=== PATIENT | male | born 1955 | race Caucasian/White ===

== ENCOUNTER 2016-08-30 13:50 | Emergency (ER) | payer OTHER ==
[2016-08-30 13:58] VITALS: RESP 16
--- NOTE | 2016-08-30 14:13 | EDPHY ---
H & P Stated Complaint: Slipped and fell; lac to forehead; No LOC Source: Patient Exam Limitations: No limitations - Personal History Current Tetanus Diphtheria and Acellular Pertussis (TDAP): Yes - Medical/Surgical History Other PMH: healthy - Social History Smoking Status: Never smoked Time Seen by Provider: 08/30/16 14:11 HPI/ROS: CHIEF COMPLAINT: Mechanical fall, head laceration. HISTORY OF PRESENT ILLNESS: The patient is a 60-year-old male who presents after a mechanical fall while hiking. He struck his forehead and is complaining of a laceration. He denies dizziness, chest pain, shortness of breath, or other preceding symptoms. He admits mild neck pain that has mostly resolved. He denies loss of consciousness. No weakness or numbness in his arms. No fever, chills, chest pain, shortness of breath, palpitations, vomiting, diarrhea, urinary complaints, headache, lightheadedness. REVIEW OF SYSTEMS: Aside from elements discussed in the HPI, a comprehensive 10-point review of systems was reviewed and is negative. PAST MEDICAL HISTORY: Denies. SOCIAL HISTORY: Here with . VITAL SIGNS: Reviewed by me GENERAL: Well-developed, well-nourished, resting comfortably in no respiratory distress. HEENT: 2.5cm vertical laceration across forehead. Abrasion on nasal bridge. Contusion in center of forehead. Eyes: PERRL, EOMI. No icterus, no injection. Mouth: moist mucous membranes. No erythema or lesions. Neck: Nontender to palpation. supple with no adenopathy. LUNGS: Clear to auscultation bilaterally, no wheezes, rhonchi or rales. CARDIAC: Regular rate and rhythm, no rubs, murmurs or gallops. ABDOMEN: Soft, nontender, nondistended, bowel sounds normal. BACK: No CVA tenderness. EXTREMITIES: No trauma. No edema. Range of motion is normal throughout. NEURO: Alert and oriented, Motor 5/5 in all major muscle groups. Sensation grossly intact. SKIN: Warm and dry, no rash. PSYCHIATRIC: Normal mentation, no agitation. Portions of this note were transcribed by a medical device. I personally performed a history, physical exam, medical decision making, and confirmed accuracy of information the transcribed note. (Lara Cervantes) Constitutional: Initial Vital Signs Temperature (C) 36.6 C 08/30/16 13:56 Heart Rate 73 08/30/16 13:56 Respiratory Rate 16 08/30/16 13:56 Blood Pressure 115/76 08/30/16 13:56 O2 Sat (%) 99 08/30/16 13:56 O2 Delivery Mode Room Air Allergies/Adverse Reactions: No Known Allergies Allergy (Verified 08/30/16 13:55) Home Medications: Medication Instructions Recorded NK [No Known Home Meds] 08/30/16 Medical Decision Making Procedures: Procedure: Laceration repair. Verbal consent was obtained from the patient. The 2.5 cm laceration on the forehead was anesthetized in the usual fashion. The wound was irrigated, draped and explored to its base with a gloved finger. There were no deep structures involved. No tendon injury was identified. The wound was repaired with 6 0 Prolene, 8 simple interrupted sutures. The wound repair was simple. The procedure was performed by myself. (Trevor Bennett) ED Course/Re-evaluation: 60 year old with a mechanical slip and fall. No LOC. Facial/ forehead trauma alone. Neurologically intact. Here with . Lac repaired. Home with [facility] instructions and laceration instructions. (Lara Cervantes) Differential Diagnosis: Differential diagnosis for the patient's injury was considered including but not limited to contusion, abrasion, laceration, intracranial hemorrhage, concussion, facial fracture, nasal fracture, cervical spine injury. (Lara Cervantes) - Data Points Medications Given: Discontinued Medications Ibuprofen (Motrin) 600 mg PO EDNOW ONE Stop: 08/30/16 14:23 Last Admin: 08/30/16 14:26 Dose: 600 mg Departure - Departure Disposition: Home, Routine, Self-Care Clinical Impression: Forehead laceration Qualifiers: Encounter type: initial encounter Qualifier Code: (S01.81XA) Laceration without foreign body of other part of head, initial encounter Head injury Qualifiers: Encounter type: initial encounter Qualifier Code: (S09.90XA) Unspecified injury of head, initial encounter Condition: Good Instructions: Laceration (ED), Head Injury (ED) Additional Instructions: Keep wound clean and dry. Clean suture line with a mixture of hydrogen peroxide and water. Apply a thin layer of antibiotic cream. Dress wound if desired. Suture removal in 6-7 days. Watch for signs of infection. Showers are ok, but no swimming until sutures are removed. Return to emergency department if any concerns regarding infection. You have also been given instructions regarding close head injury precautions. Return to the emergency department if you have any concerns. Referrals: [place],. [Primary Care Provider] - As per Instructions Report Scribed for: Lara Cervantes Report Scribed by: Marvin Pierce Date of Report: 08/30/16 Time of Report: 14:13
[2016-08-30] MEDS ORDERED: IBUPROFEN 600 MG TAB PO ONE (14:22)
[2016-08-30 15:29] VITALS: BP 118/73; PULSE 58; TEMP 98.2; O2SAT 96
== END 2016-08-30 15:28 | disposition home or self-care (01) ==
PROC: 0HQ1XZZ Repair Face Skin, External Approach (ICD-10-PCS; principal; 2016-08-30)
DX: S01.81XA Laceration without foreign body of other part of head, initial encounter (principal); W18.39XA Other fall on same level, initial encounter; Y93.01 Activity, walking, marching and hiking